=== PATIENT | male | born 1950 | race African-American/Black ===

== ENCOUNTER → 2020-08-21 11:00 | Outpatient (BNVA) | payer MEDICARE, SELFPAY | PROVIDERS: Visit Provider Urology | DX: Z76.89 Persons encountering health services in other specified circumstances (principal) | CPT/HCPCS: Q3014 ==

== ENCOUNTER 2020-09-28 12:09 | Outpatient (REF) | payer MEDICARE, SELFPAY ==
--- NOTE | 2020-09-28 12:14 | US_ITS ---
EXAMINATION: US PELVIS LIMITED (BLADDER) CLINICAL INFORMATION: Poor urinary stream. Patient reports urgency and frequency. COMPARISON: None TECHNIQUE: Real-time imaging of the bladder. FINDINGS: BLADDER: There is mild diffuse bladder wall thickening. No stone or mass is seen. Bilateral ureteral jets are demonstrated. Prevoid bladder volume is 179.0 mL. Postvoid bladder volume is 48.2 mL. PROSTATE: The prostate gland is enlarged and protrudes into the base of the bladder 4.0 x 4.1 x 4.8 cm (SAG x AP x TRV), volume 40.5 mL. US/US bladder IMPRESSION: Mild diffuse bladder wall thickening. 48 mL postvoid bladder residual. Enlarged prostate gland that protrudes into the base of the bladder.
== END 2020-09-28 12:10 | disposition home or self-care (01) ==
LOC: HO.US 12:09
PROVIDERS: PCP Internal Medicine; Visit Provider Urology
DX: R39.12 Poor urinary stream (principal); N40.1 Benign prostatic hyperplasia with lower urinary tract symptoms; N13.8 Other obstructive and reflux uropathy
CPT/HCPCS: 76857

== ENCOUNTER → 2021-01-08 10:10 | Outpatient (BNVA) | payer MEDICARE, SELFPAY | PROVIDERS: PCP Internal Medicine; Visit Provider Urology | DX: N40.1 Benign prostatic hyperplasia with lower urinary tract symptoms (principal); N13.8 Other obstructive and reflux uropathy | CPT/HCPCS: 51798; 81002; 99212 ==

== ENCOUNTER 2021-12-27 12:40 | Outpatient (REF) | payer OTHER, SELFPAY ==
[2021-12-27 14:48] LABS: Prostate Specific Antigen 1.82 ng/mL (<0.05-4.0)
== END 2021-12-27 12:41 | disposition home or self-care (01) ==
LOC: HO.10HDL 12:40
PROVIDERS: Visit Provider Urology
DX: Z12.5 Encounter for screening for malignant neoplasm of prostate (principal); N40.1 Benign prostatic hyperplasia with lower urinary tract symptoms; N13.8 Other obstructive and reflux uropathy
CPT/HCPCS: 36415; 84153

== ENCOUNTER → 2022-01-04 11:34 | Outpatient (BNVA) | payer OTHER, SELFPAY | PROVIDERS: PCP Internal Medicine; Visit Provider Urology | DX: Z13.89 Encounter for screening for other disorder (principal) | CPT/HCPCS: Q3014 ==

== ENCOUNTER → 2022-04-27 13:13 | Outpatient (BNVA) | payer OTHER, SELFPAY | PROVIDERS: PCP Internal Medicine; Visit Provider Urology | DX: N40.1 Benign prostatic hyperplasia with lower urinary tract symptoms (principal); N13.8 Other obstructive and reflux uropathy; N32.81 Overactive bladder | CPT/HCPCS: Q3014 ==

== ENCOUNTER 2023-08-16 13:52 | Outpatient (AMB) | payer OTHER, SELFPAY ==
--- NOTE | 2023-08-16 13:57 | A.OFFVIS_ITS ---
Intake Intake Visit Reasons: BPH- follow up Intake Note: Patient presents today for a follow-up on: Meds- None Allergies to Antibiotic- No Known Allergies Blood Thinner- None PVR- 130 mL County Assessor Required: No Accompanied by: Self / Same As Patient Allergies Latex Gloves Allergy (Unknown, Uncoded 08/16/23 13:58) Unknown Medication List - Last Reconciled 08/16/23 by Breezy Tolentnio MD amlodipine 5 mg PO DAILY levothyroxine 137 mcg PO DAILY HPI HPI Comments History of Present Illness Details Rony is a pleasant [place] male. He is seen for the following urologic conditions - lower urinary tract symptoms PVR today 130 cc Had stopped other medications Discussion regarding trial of tadalafil for bladder edge and emptying Has discomfort around bladder Renal bladder ultrasound with medication Trauma Lower Urinary Tract Symptoms: Current visit is for further evaluation of, lower urinary tract symptoms, predominate obstructive symptoms Currently stable with dutasteride Dutasteride 1 day a week. Current treatment includes 07/05 , 5-AR. Prior treatments include medication , flomax/tamsulosin - failed, hytrin/terazosin dizziness - had stopped finasteride since had started same time as flomax - oxybutynin with dry mouth, prior darifenacin 07/05 dutasteride. Prostate Symptom Score Moderate (9-19), Bother 3 07/05 , , Moderate (9-19), Bother 2. Symptoms include urgency, nocturia (>2), and are progressing 07/05 , nocturia (>2), and are stable 01/04 , incomplete emptying, weak stream,, and are stable. Results from testing include cystoscopy Normal bladder with occasional red area - 07/03 - chronic cystitis transrectal ultrasound Yes Date 06/20/2016 prostate size 65 Prior Prostate Score mild. PSA 06/05 1.2, 11/07 2.2, 02/04 T 500, FSH 19 - 12/06 PSA 1.6, 12/07 1.8 Prostate volume 50+gm. Testing at next visit will include bladder scan. Treatment plan 6 month follow-up PVR PFSH Medical History BPH (benign prostatic hyperplasia) HTN (hypertension) Incomplete emptying of bladder Nocturia Orchalgia Overactive bladder Surgical History History of surgery Review of Systems Const Denies chills and Denies fever(s) Card Reports no additional complaints and Denies syncope Resp Denies cough GI Denies abdominal pain and Denies heartburn Reports as per HPI and Denies change in libido Neuro Denies syncope Psych Denies change in libido Endo Denies change in libido Physical Exam Const General: cooperative, healthy appearing, comfortable and no acute distress Orientation/consciousness: patient oriented x3 HEENT Face and sinus: Yes normal facial exam Mouth: moist mucous membranes Neck Neck: Yes normal visual inspection, Yes full ROM and Yes trachea midline Chest Chest palpation & inspection: normal inspection of the chest Resp Effort & Inspection: normal respiratory effort, able to speak in complete sentences and no respiratory distress GI Inspection: Yes normal to inspection Back/Spine/Pelvis Cervical Spine: normal cervical lordosis Thoracic/Lumbar Spine: thoracic and lumbar spine normal to inspection Skin General skin exam: no rashes or lesions noted Neuro General: patient oriented x3, gait normal, tone normal and moves all extremities Extrem General: Yes normal to inspection and Yes capillary refill normal Office Procedures Post Void Residual Post Residual Void Post Void Residual (PVR): 130 [id number]-[id number] Void Residual by ultrasound Results AMB Urinalysis, Automated UA Leukoctes 0 Tin/uL Last Edit by CATHY Calvin on 08/16/23 14:23 UA Nitrite Negative Last Edit by CATHY Calvin on 08/16/23 14:23 UA Urobilinogen 0.2 mg/dL Last Edit by CATHY Calvin on 08/16/23 14:2 3 UA Protein 0 mg/dL Last Edit by CATHY Calvin on 08/16/23 14:23 UA pH 6.0 Last Edit by CATHY Calvin on 08/16/23 14:23 UA Blood 25 Elmer/uL Last Edit by CATHY Calvin on 08/16/23 14:23 UA Specific Jackson 1.025 Last Edit by CATHY Calvin on 08/16/23 14: 23 UA Ketone Negative Last Edit by CATHY Calvin on 08/16/23 14:23 UA Bilirubin 0 mg/dL Last Edit by CATHY Calvin on 08/16/23 14:23 UA Glucose 0 mg/dL Last Edit by CATHY Calvin on 08/16/23 14:23 Assessment & Plan Assessment & Plan (1) Overactive bladder: Code(s): N32.81 - Overactive bladder (2) BPH w urinary obs/LUTS: Code(s): N40.1 - Benign prostatic hyperplasia with lower urinary tract symptoms; N13.8 - Other obstructive and reflux uropathy Plan Two month follow-up tele Orders: Orders AMB Post Void Residual by ultrasound Today N39.8 - Other specified disorders of urinary system AMB Urinalysis Automated Today Z13.9 - Encounter for screening, unspecified US retroperitoneal limited Today N32.81 - Overactive bladder, R31.29 - Other microscopic hematuria Medications: New tadalafil 5 mg PO DAILY 90 days 90 tabs 0RF overactive bladder N32.81 - Overact awais bladder Patient Instructions: Imaging studies, laboratory and physical exam results were discussed and reviewed in detail. No major barriers to patient understanding were identified. An opportunity to ask questions regarding the treatment plan was provided. All questions were answered. The patient expressed understanding and agreement with the above treatment plan. The patient is aware they should contact our office by phone for worsening of their current condition or the appearance of new urologic symptoms. Compliance is encouraged with any medications and followup testing that is ordered. It is a privilege to participate in the urologic care of your patient. If you have any questions or concerns regarding treatment for the above conditions, or other urologic issues, please do not hesitate to contact me. The office telephone contact is [phone]. This note is constructed using voice recognition software. While every effort has been made to ensure accuracy field appraiser errors may have been included. Yours sincerely, Dr Breezy Tolentino MD, [facility] - Urology Providers of Expert, Compassionate Care for the Genitourinary System Coding Level of Care Code Est Pt Level 4 (62923) Diagnoses Overactive bladder N32.81 BPH w urinary obs/LUTS N40.1; N13.8 CPT Codes Post Residual Void - PVR CPT Code: 23967-Vdfk Void Residual by ultrasound ([id number])
== END 2023-08-16 14:25 | disposition home or self-care (01) ==
PROVIDERS: PCP Internal Medicine; Visit Provider Urology
DX: N32.81 Overactive bladder (principal); N40.1 Benign prostatic hyperplasia with lower urinary tract symptoms; N13.8 Other obstructive and reflux uropathy; Z13.9 Encounter for screening, unspecified
CPT/HCPCS: 99214

== ENCOUNTER → 2023-08-16 13:52 | Outpatient (BNVA) | payer OTHER, SELFPAY | PROVIDERS: PCP Internal Medicine; Visit Provider Urology | DX: N40.1 Benign prostatic hyperplasia with lower urinary tract symptoms (principal); N13.8 Other obstructive and reflux uropathy; N32.81 Overactive bladder | CPT/HCPCS: 51798; 81003; 99212 ==

== ENCOUNTER 2023-10-16 12:52 | Outpatient (REF) | payer MEDICARE, SELFPAY ==
--- NOTE | ~2023-10-16 | US_ITS ---
EXAMINATION: US RETROPERITONEAL LIMITED (RENAL ONLY) CLINICAL INFORMATION: Other microscopic hematuria. COMPARISON: Ultrasound kidneys and bladder 09/28/2020. TECHNIQUE: Real-time imaging of the kidneys. Limited visualization due to bowel gas. FINDINGS: RIGHT KIDNEY: 10.7 x 5.4 x 6.0 cm (SAG x AP x TRV). No hydronephrosis. No renal calculi. Renal cortical thickness is normal. Limited visualization. Upper pole 2.2 cm and 2.0 cm cysts with benign features. There is no indication for follow-up imaging. LEFT KIDNEY: 10.6 x 6.1 x 6.0 cm (SAG x AP x TRV). No hydronephrosis. No renal calculi. Renal cortical thickness is normal. Limited visualization. BLADDER: Bladder is decompressed. The prostate volume is 97 mL. US/US renal BI IMPRESSION: 1. No hydronephrosis. No renal calculi. 2. Right renal cysts with benign features. There is no indication for follow-up imaging.
== END 2023-10-16 12:53 | disposition home or self-care (01) ==
LOC: HO.US 12:52
PROVIDERS: PCP Internal Medicine; Visit Provider Urology
DX: R31.29 Other microscopic hematuria (principal); N32.81 Overactive bladder
CPT/HCPCS: 76775

== ENCOUNTER 2023-10-18 13:53 | Outpatient (AMB) | payer MEDICARE, SELFPAY ==
--- NOTE | 2023-10-18 13:54 | MHC.OFFVIS ---
Intake Intake Visit Reasons: 2m/US(10/16) Intake Note: Patient is Present for Telephone Follow Up Ultrasound Urology Med: Tadalafil Antibiotic Allergy: None Blood Thinner: None Allergies Latex Gloves Allergy (Unknown, Uncoded 08/16/23 13:58) Unknown HPI HPI Comments History of Present Illness Details Rony is a pleasant [place] male. He is seen for the following urologic conditions - lower urinary tract symptoms Telemedicine Evaluation 15 min Consultation [facility] Has responded to tadalafil is bladder stabilize the Would like to continue Prescription provided Lower Urinary Tract Symptoms: Current visit is for further evaluation of, lower urinary tract symptoms, predominate obstructive symptoms Current treatment includes 07/05 , 5-AR. Prior treatments include medication , flomax/tamsulosin - failed, hytrin/terazosin dizziness - had stopped finasteride since had started same time as flomax - oxybutynin with dry mouth, prior darifenacin 07/05 dutasteride. Prostate Symptom Score Moderate (9-19), Bother 3 07/05 , , Moderate (9-19), Bother 2. Symptoms include urgency, nocturia (>2), and are progressing 07/05 , nocturia (>2), and are stable 01/04 , incomplete emptying, weak stream,, and are stable. Results from testing include cystoscopy Normal bladder with occasional red area - 07/03 - chronic cystitis transrectal ultrasound Yes Date 06/20/2016 prostate size 65 Prior Prostate Score mild. PSA 06/05 1.2, 11/07 2.2, 02/04 T 500, FSH 19 - 12/06 PSA 1.6, 12/07 1.8 Prostate volume 50+gm. Testing at next visit will include bladder scan. Treatment plan 6 month follow-up PVR COUNT INCLUDES [facility] Medical History BPH (benign prostatic hyperplasia) HTN (hypertension) Incomplete emptying of bladder Nocturia Orchalgia Overactive bladder Surgical History History of surgery Assessment & Plan Assessment & Plan (1) Overactive bladder: Code(s): N32.81 - Overactive bladder (2) BPH w urinary obs/LUTS: Code(s): N40.1 - Benign prostatic hyperplasia with lower urinary tract symptoms; N13.8 - Other obstructive and reflux uropathy Plan Six-month follow-up Medications: Refilled tadalafil 5 mg PO DAILY 90 days 90 tabs 1RF overactive bladder N32.81 - Overactive bladder Patient Instructions: Imaging studies, laboratory and physical exam results were discussed and reviewed in detail. No major barriers to patient understanding were identified. An opportunity to ask questions regarding the treatment plan was provided. All questions were answered. The patient expressed understanding and agreement with the above treatment plan. The patient is aware they should contact our office by phone for worsening of their current condition or the appearance of new urologic symptoms. Compliance is encouraged with any medications and followup testing that is ordered. It is a privilege to participate in the urologic care of your patient. If you have any questions or concerns regarding treatment for the above conditions, or other urologic issues, please do not hesitate to contact me. The office telephone contact is [phone]. This note is constructed using voice recognition software. While every effort has been made to ensure accuracy mobile equipment operator errors may have been included. Yours sincerely, Dr Breezy Tolentino MD, [facility] - Urology Providers of Expert, Compassionate Care for the Genitourinary System Telehealth Telehealth Location of provider rendering services: practice address Location of patient: address on file Patient Identification confirmed using: Name, : Yes Telehealth method: video Patient verbally consented to treatment: Yes Patient verbally consented to billing insurance company: Yes Patient informed of any privacy concerns related to visit: Yes Coding Level of Care Code Tele Est Pt Level 3 (21032) Diagnoses Overactive bladder N32.81 BPH w urinary obs/LUTS N40.1; N13.8
== END 2023-10-18 14:30 | disposition home or self-care (01) ==
LOC: HO.HUSH 13:53
PROVIDERS: PCP Internal Medicine; Visit Provider Urology
DX: N32.81 Overactive bladder (principal); N40.1 Benign prostatic hyperplasia with lower urinary tract symptoms; N13.8 Other obstructive and reflux uropathy
CPT/HCPCS: 99213

== ENCOUNTER → 2023-10-18 13:53 | Outpatient (BNVA) | payer MEDICARE, SELFPAY | PROVIDERS: PCP Internal Medicine; Visit Provider Urology ==

== ENCOUNTER 2024-04-16 14:17 | Outpatient (AMB) | payer MEDICARE, SELFPAY ==
--- NOTE | 2024-04-16 14:20 | A.OFFVIS_ITS ---
Intake Visit Reasons: 6M Follow Up-PVR Intake Note: Patient presents today for a 6M follow-up/PVR Meds- None Allergies to Antibiotic- No Known Allergies Blood Thinner- None PVR- 130 mL todays PVR:0ML'S Motor Inspection Mechanic Required: No Accompanied by: Self / Same As Patient Allergies Latex Gloves Allergy (Unknown, Uncoded 04/16/24 14:22) Unknown Medication List - Last Reconciled 04/16/24 by Breezy Tolentino MD amlodipine 5 mg PO DAILY levothyroxine 137 mcg PO DAILY tadalafil 5 mg PO DAILY 90 days HPI Comments Details: Rony is a pleasant [place] male. He is seen for the following urologic conditions - lower urinary tract symptoms - bladder instability PVR 0 cc Has responded to tadalafil - bladder stabilization Has been having pain on left side. On exam no musculoskeletal triggers. Discussed getting imaging through primary care Refilled medications Lower Urinary Tract Symptoms: Current visit is for further evaluation of, lower urinary tract symptoms, predominate obstructive symptoms Current treatment includes 07/05 , 5-AR. Prior treatments include medication , flomax/tamsulosin - failed, hytrin/terazosin dizziness - had stopped finasteride since had started same time as flomax - oxybutynin with dry mouth, prior darifenacin 07/05 dutasteride. Prostate Symptom Score Moderate (9-19), Bother 3 07/05 , , Moderate (9-19), Bother 2. Symptoms include urgency, nocturia (>2), and are progressing 07/05 , nocturia (>2), and are stable 01/04 , incomplete emptying, weak stream,, and are stable. Results from testing include cystoscopy Normal bladder with occasional red area - 07/03 - chronic cystitis transrectal ultrasound Yes Date 06/20/2016 prostate size 65 Prior Prostate Score mild. PSA 06/05 1.2, 11/07 2.2, 02/04 T 500, FSH 19 - 12/06 PSA 1.6, 12/07 1.8 Prostate volume 50+gm. Testing at next visit will include bladder scan. Treatment plan 6 month follow-up PVR [facility] Medical History BPH (benign prostatic hyperplasia) HTN (hypertension) Incomplete emptying of bladder Nocturia Orchalgia Overactive bladder Surgical History History of surgery Review of Systems Const Denies chills and Denies fever(s) Card Reports no additional complaints and Denies syncope Resp Denies cough GI Denies abdominal pain and Denies heartburn Reports as per HPI and Denies change in libido Neuro Denies syncope Psych Denies change in libido Endo Denies change in libido Physical Exam Const General: cooperative, healthy appearing, comfortable and no acute distress Orientation/consciousness: patient oriented x3 HEENT Face and sinus: Yes normal facial exam Mouth: moist mucous membranes Neck Neck: Yes normal visual inspection, Yes full ROM and Yes trachea midline Chest Chest palpation & inspection: normal inspection of the chest Resp Effort & Inspection: normal respiratory effort, able to speak in complete sentences and no respiratory distress GI Inspection: Yes normal to inspection Back/Spine/Pelvis Cervical Spine: normal cervical lordosis Thoracic/Lumbar Spine: thoracic and lumbar spine normal to inspection Skin General skin exam: no rashes or lesions noted Neuro General: patient oriented x3, gait normal, tone normal and moves all extremities Extrem General: Yes normal to inspection and Yes capillary refill normal Office Procedures Post Void Residual Post Residual Void Post Void Residual (PVR): 0 [id number]-[id number] Void Residual by ultrasound Results AMB Urinalysis, Automated UA Leukoctes 0 Tin/uL Last Edit by ISAC Berg on 04/16/24 14:33 UA Nitrite Negative Last Edit by ISAC Berg on 04/16/24 14:33 UA Urobilinogen 0.2 mg/dL Last Edit by ISAC Berg on 04/16/24 14:3 3 UA Protein 0 mg/dL Last Edit by ISAC Berg on 04/16/24 14:33 UA pH 6.0 Last Edit by ISAC Berg on 04/16/24 14:33 UA Blood 25 Elmer/uL Last Edit by ISAC Berg on 04/16/24 14:33 UA Specific Buck[place] 1.010 Last Edit by ISAC Berg on 04/16/24 14: 33 UA Ketone Negative Last Edit by ISAC Berg on 04/16/24 14:33 UA Bilirubin 0 mg/dL Last Edit by ISAC Berg on 04/16/24 14:33 UA Glucose 0 mg/dL Last Edit by ISAC Berg on 04/16/24 14:33 Results Reviewed Results Reviewed: Laboratory Last Values Urine pH (Auto) 6.0 04/16/24 14:32 Specific Buckner (Auto) 1.010 04/16/24 14:32 Urine Protein (Auto) 0 mg/dL 04/16/24 14:32 Glucose (UA)(Auto) 0 mg/dL 04/16/24 14:32 Urine Ketones (Auto) Negative 04/16/24 14:32 Urine Blood (Auto) 25 Elmer/uL 04/16/24 14:32 Urine Nitrite (Auto) Negative 04/16/24 14:32 Urine Bilirubin (Auto) 0 mg/dL 04/16/24 14:32 Urine Urobilinogen (Auto) 0.2 mg/dL 04/16/24 14:32 Leukocyte Esterase (Auto) 0 Tin/uL 04/16/24 14:32 Assessment & Plan Assessment & Plan (1) Overactive bladder: Code(s): N32.81 - Overactive bladder Category: Medical (2) BPH w urinary obs/LUTS: Code(s): N40.1 - Benign prostatic hyperplasia with lower urinary tract symptoms; N13.8 - Other obstructive and reflux uropathy Category: Medical Plan Six month follow-up Orders: Orders AMB Urinalysis Automated Today Z13.9 - Encounter for screening, unspecified Medications: New tadalafil 5 mg PO DAILY 90 days 90 tabs 0RF N32.81 - Overactive bladder Refilled tadalafil 5 mg PO DAILY 90 days 90 tabs 1RF overactive bladder N32.81 - Overactive bladder Patient Instructions: Imaging studies, laboratory and physical exam results were discussed and reviewed in detail. No major barriers to patient understanding were identified. An opportunity to ask questions regarding the treatment plan was provided. All questions were answered. The patient expressed understanding and agreement with the above treatment plan. The patient is aware they should contact our office by phone for worsening of their current condition or the appearance of new urologic symptoms. Compliance is encouraged with any medications and followup testing that is ordered. It is a privilege to participate in the urologic care of your patient. If you have any questions or concerns regarding treatment for the above conditions, or other urologic issues, please do not hesitate to contact me. The office telephone contact is [phone]. This note is constructed using voice recognition software. While every effort has been made to ensure accuracy applications specialist errors may have been included. Yours sincerely, Dr Breezy Tolentino MD, [facility] - Urology Providers of Expert, Compassionate Care for the Genitourinary System Coding Level of Care Code Est Pt Level 3 (59843) Diagnoses Overactive bladder N32.81 BPH w urinary obs/LUTS N40.1; N13.8 CPT Codes Post Residual Void - PVR CPT Code: 97975-Betr Void Residual by ultrasound ([id number])
== END 2024-04-16 14:44 | disposition home or self-care (01) ==
PROVIDERS: PCP Internal Medicine; Visit Provider Urology
DX: N32.81 Overactive bladder (principal); N40.1 Benign prostatic hyperplasia with lower urinary tract symptoms; N13.8 Other obstructive and reflux uropathy; Z13.9 Encounter for screening, unspecified
CPT/HCPCS: 99213

== ENCOUNTER → 2024-04-16 14:17 | Outpatient (BNVA) | payer MEDICARE, SELFPAY | PROVIDERS: PCP Internal Medicine; Visit Provider Urology | DX: N40.1 Benign prostatic hyperplasia with lower urinary tract symptoms (principal); N13.8 Other obstructive and reflux uropathy; N32.81 Overactive bladder | CPT/HCPCS: 51798; 81003; 99212 ==

== ENCOUNTER 2024-10-15 14:26 | Outpatient (AMB) | payer MEDICARE, SELFPAY ==
--- NOTE | 2024-10-15 14:28 | A.OFFVIS_ITS ---
Intake Visit Reasons: 6m follow up/PVR Intake Note: Patient is present for 6M PVR Urology Medication:TADALAFIL Antibiotic Allergy:NONE Blood Thinner:NONE Last PVR:130ML'S Todays PVR:0ML'S Broadcast Producer Required: No Allergies Latex Gloves Allergy (Unknown, Uncoded 10/15/24 14:30) Unknown HPI Comments Details: Rony is a pleasant [place] male. He is seen for the following urologic conditions - lower urinary tract symptoms - bladder instability PVR today 130. Last PVR 0. Has responded to tadalafil - bladder stabilization UA shows 2+ blood known prior chronic cystitis Has been using Metamucil to help with bowels This helped resolve his back pain Talked about having lunch at [employer] Lower Urinary Tract Symptoms: Current visit is for further evaluation of, lower urinary tract symptoms, predominate obstructive symptoms Current treatment includes 07/05 , 5-AR. Prior treatments include medication , flomax/tamsulosin - failed, hytrin/terazosin dizziness - had stopped finasteride since had started same time as flomax - oxybutynin with dry mouth, prior darifenacin 07/05 dutasteride. Prostate Symptom Score Moderate (9-19), Bother 3 07/05 , , Moderate (9-19), Bother 2. Symptoms include urgency, nocturia (>2), and are progressing 07/05 , nocturia (>2), and are stable 01/04 , incomplete emptying, weak stream,, and are stable. Results from testing include cystoscopy Normal bladder with occasional red area - 07/03 - chronic cystitis transrectal ultrasound Yes Date 06/20/2016 prostate size 65 Prior Prostate Score mild. PSA 06/05 1.2, 11/07 2.2, 02/04 T 500, FSH 19 - 12/06 PSA 1.6, 12/07 1.8 Prostate volume 50+gm. Testing at next visit will include bladder scan. [facility] Medical History BPH (benign prostatic hyperplasia) HTN (hypertension) Incomplete emptying of bladder Nocturia Orchalgia Overactive bladder Surgical History History of surgery Review of Systems Const Denies chills and Denies fever(s) Card Reports no additional complaints and Denies syncope Resp Denies cough GI Denies abdominal pain and Denies heartburn Reports as per HPI and Denies change in libido Neuro Denies syncope Psych Denies change in libido Endo Denies change in libido Physical Exam Const General: cooperative, healthy appearing, comfortable and no acute distress Orientation/consciousness: patient oriented x3 HEENT Face and sinus: Yes normal facial exam Mouth: moist mucous membranes Neck Neck: Yes normal visual inspection, Yes full ROM and Yes trachea midline Chest Chest palpation & inspection: normal inspection of the chest Resp Effort & Inspection: normal respiratory effort, able to speak in complete sentences and no respiratory distress GI Inspection: Yes normal to inspection Back/Spine/Pelvis Cervical Spine: normal cervical lordosis Thoracic/Lumbar Spine: thoracic and lumbar spine normal to inspection Skin General skin exam: no rashes or lesions noted Neuro General: patient oriented x3, gait normal, tone normal and moves all extremities Extrem General: Yes normal to inspection and Yes capillary refill normal Office Procedures Post Void Residual Post Residual Void Post Void Residual (PVR): 0 66255-Ualb Void Residual by ultrasound Results AMB Urinalysis, Automated UA Leukoctes 0 Tin/uL Last Edit by ISAC Berg on 10/15/24 15:02 UA Nitrite Negative Last Edit by ISAC Berg on 10/15/24 15:02 UA Urobilinogen 0.2 mg/dL Last Edit by ISAC Berg on 10/15/24 15:0 2 UA Protein 30 mg/dL Last Edit by ISAC Berg on 10/15/24 15:02 UA pH 6.0 Last Edit by ISAC Berg on 10/15/24 15:02 UA Blood 80 Elmer/uL Last Edit by ISAC Berg on 10/15/24 15:02 UA Specific Belcourt 1.025 Last Edit by ISAC Berg on 10/15/24 15: 02 UA Ketone Positive Last Edit by ISAC Berg on 10/15/24 15:02 UA Bilirubin 0 mg/dL Last Edit by ISAC Berg on 10/15/24 15:02 UA Glucose 0 mg/dL Last Edit by ISAC Berg on 10/15/24 15:02 Results Reviewed Results Reviewed: Laboratory Last Values Urine pH (Auto) 6.0 10/15/24 15:02 Specific [place]court (Auto) 1.025 10/15/24 15:02 Urine Protein (Auto) 30 mg/dL 10/15/24 15:02 Glucose (UA)(Auto) 0 mg/dL 10/15/24 15:02 Urine Ketones (Auto) Positive 10/15/24 15:02 Urine Blood (Auto) 80 Elmer/uL 10/15/24 15:02 Urine Nitrite (Auto) Negative 10/15/24 15:02 Urine Bilirubin (Auto) 0 mg/dL 10/15/24 15:02 Urine Urobilinogen (Auto) 0.2 mg/dL 10/15/24 15:02 Leukocyte Esterase (Auto) 0 Tin/uL 10/15/24 15:02 Assessment & Plan Assessment & Plan (1) Overactive bladder: Code(s): N32.81 - Overactive bladder Category: Medical (2) Nocturia: Code(s): R35.1 - Nocturia Category: Medical (3) BPH w urinary obs/LUTS: Code(s): N40.1 - Benign prostatic hyperplasia with lower urinary tract symptoms; N13.8 - Other obstructive and reflux uropathy Category: Medical Plan Six-month follow-up office Refill provided Orders: Orders AMB Urinalysis Automated Today Z13.9 - Encounter for screening, unspecified Medications: Refilled tadalafil 5 mg PO DAILY 90 days 90 tabs 1RF overactive bladder N32.81 - Overactive bladder Patient Instructions: Imaging studies, laboratory and physical exam results were discussed and reviewed in detail. No major barriers to patient understanding were identified. An opportunity to ask questions regarding the treatment plan was provided. All questions were answered. The patient expressed understanding and agreement with the above treatment plan. The patient is aware they should contact our office by phone for worsening of their current condition or the appearance of new urologic symptoms. Compliance is encouraged with any medications and followup testing that is ordered. It is a privilege to participate in the urologic care of your patient. If you have any questions or concerns regarding treatment for the above conditions, or other urologic issues, please do not hesitate to contact me. The office telephone contact is [phone]. This note is constructed using voice recognition software. While every effort has been made to ensure accuracy foster care social worker errors may have been included. Yours sincerely, Dr Breezy Tolentino MD, DON[facility] - Urology Providers of Expert, Compassionate Care for the Genitourinary System Coding Level of Care Code Est Pt Level 3 (65446) Diagnoses Overactive bladder N32.81 Nocturia R35.1 BPH w urinary obs/LUTS N40.1; N13.8 CPT Codes Post Residual Void - PVR CPT Code: 29367-Vtlj Void Residual by ultrasound ([id number])
--- OUTSIDE RECORDS SUMMARY | 2024-10-15 15:19 | XMS_ITS | Continuity of Care Document ---
Author Organization [facility] Address [address] [place] [address]- Care Team Providers Care Computer Applications Developer Name Role Phone Anuradha RAMIREZ, Earle Holbrook Primary Care Physician Encounter [facility] Date(s): 08/19/24 - 09/18/24 [facility] [address] [place] [id number] Encounter Type: Triage Allergies, Adverse Reactions, Alerts Substance Criticality Severity Reaction Reaction Severity Status Chocolate HEADACHE Active Coconut Oil HEADACHE Active Latex rash on hands Active Strawberries HEADACHE Active Other Food Allergy ANY FOOD OR LIQUID WITH PURLE COLOR-BEETS,WINE ssugar Active Immunizations Given and Recorded Vaccine Date Status Refusal Reason zoster vaccine, inactivated 11/17/23 Recorded pneumococcal 20-valent conjugate vaccine 11/17/23 Recorded influenza virus vaccine, inactivated 08/04/22 Give n influenza virus vaccine, inactivated 08/13/21 Velasquez rded influenza virus vaccine, inactivated 1 06/09/20 Gi shalonda influenza virus vaccine, inactivated 2 05/27/18 Re corded influenza virus vaccine, inactivated 04/24/17 Velasquez rded influenza virus vaccine, inactivated 3 04/29/16 Re corded influenza virus vaccine, inactivated 4 05/04/15 Re corded influenza virus vaccine, inactivated 06/30/14 Velasquez rded influenza virus vaccine, inactivated 5 06/14/13 Gi shalonda influenza virus vaccine, inactivated 6 03/19/12 Gi shalonda influenza virus vaccine, inactivated 7 06/28/11 Gi shalonda influenza virus vaccine, inactivated 8 02/21/08 Gi shalonda SARS-CoV-2 (COVID-19) mRNA BNT-162b2 vac 08/13/21 Recorded SARS-CoV-2 (COVID-19) mRNA BNT-162b2 vac 01/23/21 Recorded SARS-CoV-2 (COVID-19) mRNA BNT-162b2 vac 01/02/21 Recorded Influenza Virus Vaccine (oldterm) 07/07/19 Recorde d tetanus-diphtheria toxoids (Td) 02/18/19 Given pneumococcal 23-valent vaccine 9 02/10/16 Recorded pneumococcal 23-valent vaccine 12/10/12 Given pneumococcal 13-valent vaccine 10 12/31/14 Recorde d Zoster Vaccine Live 11 04/13/12 Given FluLaval (oldterm) 05/28/10 Given Adacel (Tdap) (oldterm) 12 02/20/09 Given 1Result Comment: [id number] 2Result Comment: [05/28/2018] hd 3Result Comment: [05/02/2016] [facility] 4Result Comment: [05/05/2015] [facility] 6Admin Note: [facility] 7Admin Note: MANUFACTURE BIOMEDICAL INFO SHEET GIVEN GIVEN W/O INCIDENT 8Admin Note: refused 9Result Comment: [02/11/2016] [facility] 10Result Comment: [01/02/2015] DONE AT [facility] FORM RECEIVED 11Admin Note: [facility] 12Admin Note: GIVEN WITHOUT INCIDENT Medications amLODIPine 5 mg oral tablet 1 tablet, By Mouth, Daily, for 90 days, # 90 tablet, 3 Refills, Physician Stop 04/24/25 3:28:00 PM EDT, 04/29/24 3:28:00 PM EDT, [facility] #[id number], 184, cm, 04/29/24 14:30:00 EDT, Height, 88.7, kg, 04/29/24 14:30:00 EDT, Dry Weight Start Date: 04/29/24 Stop Date: 04/24/25 Status: Ordered Quantity: 90.0 Unit: tablet Repeat number: 4 Aspirin = 81 mg, By Mouth, Daily, 0 Refills, 02/21/08 3:39:44 PM EDT Start Date: 02/21/08 Status: Ordered Repeat number: 1 levothyroxine 0.137 mg oral tablet 1 tablet = 137 mcg, By Mouth, Daily, 1 tablet = 137 mcg, By Mouth, Daily. with plenty of water on an empty stomach, # 90 tablet, 3 Refills, Maintenance, 09/16/24 2:39:00 PM EST, Tablet, [facility] #[id number], 184, cm, 09/16/24 14:06:00 EST, Height, 88.7, kg, 04/29/24 14:30:00 EDT, Dry Weight Start Date: 09/16/24 Status: Ordered Quantity: 90.0 Unit: tablet Repeat number: 4 Indication: Malignant neoplasm of thyroid gland Readi-Cat 2 Smoothie Tol[place]ino 2% oral suspension See Instructions, drink one bottle 4 hours before and 1 bottle one hour before., # 2 each, 0 Refills, Maintenance, 05/06/24 5:40:00 PM EDT, [facility] #[id number], Partial fill upon patient request if the prescription is for a schedule II opioid drug., drink one bottle 4 hours before and 1 bottle one hour before., 184, cm, 04/29/24 14:30:00 EDT, Height, 88.7, kg, 04/29/24 14:30:00 EDT, Dry Mendoza ght Start Date: 05/06/24 Status: Ordered Quantity: 2.0 Unit: each Repeat number: 1 tadalafil 5 mg oral tablet By Mouth, Daily, TAKE ONE TABLET BY MOUTH EVERY DAY DIRECTED Start Date: 04/29/24 Status: Ordered Repeat number: 1 Problem List Condition Confirmation Course Effective Dates Status Health St atus Informant Gastritis and duodenitis Confirmed 11/01/20 Active Glaucoma Confirmed Active Personal history of colonic polyps Confirmed 11/01/20 Active Hypertension Confirmed 04/23/10 Active NOCTURIA Confirmed 02/21/08 Active 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 Confirmed 11/07/17 Active Right thyroid nodule s/p Right thyroid lobectomy Confirmed 08/27/17 Active Tubular adenoma of colon 1 Confirmed 05/07/14 Active 1needs repeat colonoscopy in 2019 Social History Social History Type Response Smoking Status Never smoker; Tobacc o user in household: No entered on: 12/20/13 Sex Sex Representation Male (finding) Patient Care team information Care Team Personnel Name: Earle Ling MD Position: S Physician - Primary Care Member Role: PCP Address: [address] [place] [address] Adult & Pediatric Medicine [address] Telecom: Care Team Related Persons Name: SERA LYNN Name: KAMI LYNN Name: NOBLE LYNN Insurance Providers Guarantor name: CRISTOBAL LYNN Health Plan Information #: 1 Payer: NA Member Number: NA Policy Number: NA Group Number: NA
--- OUTSIDE RECORDS SUMMARY | 2024-10-15 15:19 | XMS_ITS ---
Author Organization [facility] Address [address] [place] [address] Phone Care Team Providers Care Chief Librarian Branch Name Role Phone Unavailable Unavailable Unavailable Allergies, Adverse Reactions, Alerts Adverse reactions excluded/not available Problems Problems excluded/not available
--- OUTSIDE RECORDS SUMMARY | 2024-10-15 15:19 | XMS_ITS | Continuity of Care Document ---
Author Organization [facility] Address [address] [place] [address]- Care Team Providers Care Electronic Device Monitor Name Role Phone Earle Ling MD Primary Care Physician Encounter [facility] Date(s): 09/24/24 - 10/01/24 [facility] [address] [place], [place] [address] Attending Physician: Earle Ling MD Encounter Type: Office Visit Allergies, Adverse Reactions, Alerts Substance Criticality Severity Reaction Reaction Severity Status Chocolate HEADACHE Active Coconut Oil HEADACHE Active Latex rash on hands Active Strawberries HEADACHE Active Other Food Allergy ANY FOOD OR LIQUID WITH PURLE COLOR-BEETS,WINE ssugar Active Immunizations Given and Recorded Vaccine Date Status Refusal Reason influenza virus vaccine, inactivated 09/24/24 Give n influenza virus vaccine, inactivated 08/04/22 Give n [...] virus vaccine, inactivated 8 02/21/08 Gi shalonda zoster vaccine, inactivated 08/18/24 Recorded zoster vaccine, inactivated 11/17/23 Recorded pneumococcal 20-valent conjugate vaccine 11/17/23 Recorded SARS-CoV-2 (COVID-19) mRNA BNT-162b2 vac 08/13/21 Recorded [...] (Tdap) (oldterm) 12 02/20/09 Given 1Result Comment: [id number] 2Result Comment: [05/28/2018] hd 3Result Comment: [05/02/2016] [facility] 4Result Comment: [05/05/2015] [facility] 5Admin Note: [facility] 6Admin Note: [facility] 7Admin Note: MANUFACTURE BIOMEDICAL INFO SHEET GIVEN GIVEN W/O INCIDENT 8Admin Note: refused 9Result Comment: [02/11/2016] [facility] 10Result Comment: [01/02/2015] [facility] 11Admin Note: [facility] 12Admin Note: GIVEN WITHOUT INCIDENT Medications amLODIPine 5 mg oral tablet 1 tablet, By Mouth, Daily, for 90 days, # 90 tablet, 3 Refills, Physician Stop 04/24/25 3:28:00 PM EDT, 04/29/24 3:28:00 PM EDT, [id number], 184, cm, 04/29/24 14:30:00 EDT, Height, 88.7, [...] Refills, Maintenance, 09/16/24 2:39:00 PM EST, Tablet, [facility] #[id number], 184, cm, 09/16/24 14:06:00 EST, Height, 88.7, kg, 04/29/24 14:30:00 EDT, Dry Weight Start Date: 09/16/24 Status: Ordered Quantity: 90.0 Unit: tablet Repeat number: 4 Indication: Malignant neoplasm of thyroid gland PEG-3350 with Electrolytes [place] (Eqv-NuLYTELY) oral powder for reconstitution 240 mL, By Mouth, Every 10 minutes, Stay on clear liquid diet ALL DAY the day BEFORE the procedure.Drink half the dose the evening before, and the other half early in the morning on the day of the procedure., # 4,000 mL, 0 Refills, Maintenance, 09/25/24 3:40:00 PM EST, REC Powder, [facility] #[id number], Partial fill upon patient request if the prescription is for a schedule II opioid drug., 240 mL By Mouth Every 10 minutes,Instr:Stay on clear liquid diet ALL DAY the day BEFORE the procedure. Drink half the dose the evening before, and the other half early in the morning on the day of the procedure., 184, cm, 09/25/24 15:19:00 EST, Height, 57.9, kg, 09/24/24 15:17:00 EST, Dry Weight Start Date: 09/25/24 Status: Ordered Quantity: 4000.0 Unit: mL Repeat number: 1 Readi-Cat 2 Smoothie Tolentino 2% oral suspension See Instructions, drink one bottle 4 hours before and 1 bottle one hour before., # 2 each, 0 Refills, Maintenance, 05/06/24 5:40:00 PM EDT, [facility] #[id number], Partial fill upon patient request if the [...] 05/07/14 Active 1needs repeat colonoscopy in 2019 Vital Signs Most recent to oldest [Reference Range]: 1 Height 184 cm (09/24/24 3:17 PM) Weight 87.9 kg (09/24/24 3:17 PM) Oxygen Saturation [94-100 %] 97 % (09/24/24 3:17 PM) Pulse Rate [55-90 bpm] 55 bpm (09/24/24 3:17 PM) Body Mass Index [18.5-24.99 kg/m2] 25.96 kg/m2 *H* (09/24/24 3:17 PM) Blood Pressure [90-138/55-84 mm Hg] 130/ 70mm Hg (09/24/24 3:17 PM) Mode of Delivery (Oxygen) Room air (09/24/24 3:17 PM) Blood pressure sites Arm, left (09/24/24 3:17 PM) Dry Weight 57.9 kg (09/24/24 3:17 PM) Weight Obtained Via Standing scale (09/24/24 3:17 PM) Social History Social History Type Response Smoking Status Never smoker; Tobacc o user in household: No entered on: 12/20/13 Sex Sex Representation Male (finding) Note * Elba Kimberly: PERFORM Event Display: Patient Education/Instruction Authored Date: [id number] Ambulatory Adult Visit Summary [facility] [place] [address] Name: CRISTOBAL LYNN : 1950?? Visit: 09/24/2024 14:50?? Ambulatory Visit Instructions ?? Your Care Team Primary Care Provider Earle Ling MD? This Visit Provider Earle Ling MD Your Diagnosis Abdominal pain, lower Vitals Signs Pulse Rate: 55 bpm Height: 184 cm Systolic Blood Pressure: 130 mm Hg Weight: 87.9 kg Diastolic Blood Pressure: 70 mm Hg Body Mass Index:??25.96 kg/m2??High Oxygen Saturation: 97 % Body surface area: 2.12 Medications The list below reflects the information in our records and provided by you today along with any changes made during this visit. Please continue your medications until treatment is completed or stopped by your provider. If this is different from the information you have or there are other questions,please contact the prescribing provider. What How Much When Why Instructions Unchanged Amlodipine (amLODIPine 5 mg oral tablet) 1 tab(s) Oral Daily Duration: 90 Days Unchanged Aspirin 81 Milligram Oral Daily Unchanged Barium Sulfate (Readi-Cat 2 Smoothie Tolentino 2% oral suspension) See instructions drink ??one ??bottle ?? 4 ??hours ??before ??and ?? 1 ??bottle ??one ?? hour ??before. ?? 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 ?? with plenty of water on an empty stomach ?? Unchanged tadalafil (tadalafil 5 mg oral tablet) Oral Daily TAKE ONE TABLET BY MOUTH EVERY DAY DIRECTED ?? Medications and Immunizations Administered Immunizations Given During Visit Given Vaccine Date influenza virus vaccine, inactivated 09/24/2024 Medications Given During Visit Medication ?? Dose ?? Route ?? Last Dose Times ?? influenza virus vaccine, inactivated?0.50 mL?? Intramuscular?? 24-SEP-2024 15:19:00.00?? Allergies (NKA means No Known Allergies) Chocolate??(HEADACHE) Coconut Oil??(HEADACHE) Latex??(rash on hands) Other Food Allergy??(ANY FOOD OR LIQUID WITH PURLE COLOR-BEETS,WINE, ssugar) Strawberries??(HEADACHE) Common Emergency Awareness Tips IS IT A STROKE? Act FAST and Check for these signs: FACE Does the face look uneven? ARM Does one arm drift down? SPEECH Does their speech sound strange? TIME Call at any sign of stroke ?? Heart Attack Signs Chest discomfort: Most heart attacks involve discomfort in the center of the chest and lasts more than a few minutes, or goes away and comes back. It can feel like uncomfortable pressure, squeezing, fullness or pain. Discomfort in upper body: Symptoms can include pain or discomfort in one or both arms, back, neck, jaw or stomach. Shortness of breath: With or without discomfort. Other signs: Breaking out in a cold sweat, nausea, or lightheaded. Remember, MINUTES DO MATTER. If you experience any of these heart attack warning signs, call to get immediate medical attention! ?? Smoking can increase your chances of developing chronic health problems and can cause harmful effects to other family members in your house. If you smoke, you are strongly encouraged to quit. Please call [employer] at [phone] or 3-108-452[employer] (2675) or log in to [email or web address] for referrals to smoking cessation programs. ?? The National Suicide Prevention Hotline is available 10/04 if you or someone you know needs to find a reason to keep living. By calling 1-706-789-[employer]c (8863) you'll be connected to a skilled, trained counselor at a crisis center in your area. [facility] [employer] Portal You can view and manage your care through the patient portal or by using a health care ayan of your choosing. [employer] is a website that allows you to securely view your medical information including your hospital discharge summary, office visit summaries, medications and follow-up visits. You can also request appointments, renew medications, and request access to your medical information using a health care ayan of your choosing, or just ask a question. You can enroll at [email or web address] or register during your next office visit. [facility], in keeping with [facility] guidance, no longer requires face masks for staff, patientsor visitors in most situations. Similiar to time spent indoors at other locations, there is the chance that you were exposed to repiratory viruses during your time with us (such as flu or COVID-19). If you develop symptoms concerning for a viral respiratory infection, please seek testing (and treatment if indicated) from your medical provider or home test kit. ?? Disclaimer: The information provided is of a general nature and is intended to be used in conjunction with the recommendations and advice of your health care practitioner. Every effort has been made to ensure that the information provided is accurate and complete at the time it is provided to you however, as your needs change, or, as new information becomes available, different or additional instructions may be required. ?? If you have questions, please consult with your primary care provider or pharmacist, as appropriate. This information is not intended to serve as substitution for assessment and evaluation by a qualified health care provider. If you do not have a primary care provider, you may find a [facility] provider by calling [facility] [employer] [facility] at [phone]. Patient Care team information Care Team Personnel Name: Earle Ling MD Position: [facility] Physician - Primary Care Member Role: PCP Address: [address] [place] [address] Adult & Pediatric Medicine [place] [id number] Telecom: Care Team Related Persons Name: SERA LYNN Name: KAMI LYNN Name: NOBLE LYNN Insurance Providers Guarantor name: CRISTOBAL LEAH Health Plan Information #: 1 Payer: NA Member Number: [id number] Policy Number: NA Group Number: [id number] Health Plan Information #: 2 Payer: NA Member Number: [id number] Policy Number: NA Group Number: NA
== END 2024-10-15 15:13 | disposition home or self-care (01) ==
PROVIDERS: PCP Internal Medicine; Visit Provider Urology
DX: N32.81 Overactive bladder (principal); N40.1 Benign prostatic hyperplasia with lower urinary tract symptoms; R35.1 Nocturia; N13.8 Other obstructive and reflux uropathy; Z13.9 Encounter for screening, unspecified
CPT/HCPCS: 99213

== ENCOUNTER → 2024-10-15 14:26 | Outpatient (BNVA) | payer MEDICARE, SELFPAY | PROVIDERS: PCP Internal Medicine; Visit Provider Urology | DX: N40.1 Benign prostatic hyperplasia with lower urinary tract symptoms (principal); N32.81 Overactive bladder; R35.1 Nocturia; N13.8 Other obstructive and reflux uropathy; Z79.899 Other long term (current) drug therapy | CPT/HCPCS: 51798; 81003; 99212 ==

== ENCOUNTER 2025-04-15 13:09 | Outpatient (AMB) | payer MEDICARE, SELFPAY ==
--- OUTSIDE RECORDS SUMMARY | 2025-04-13 23:59 | XMS_ITS | Continuity of Care Document ---
Author Organization [facility] Address [address] [place] [address]- Care Team Providers Care Economic Development Manager Name Role Phone Anuradha RAMIREZ, Earle Holbrook Primary Care Physician Encounter [facility] Date(s): 03/14/25 - 04/13/25 [facility] [address] [place], [place] [address] Encounter Type: Triage Allergies, [...] (Tdap) (oldterm) 12 02/20/09 Given 1Result Comment: [id number] 2Result Comment: [05/28/2018] hd 3Result Comment: [05/02/2016] [facility] 4Result Comment: [05/05/2015] [facility] 5Admin Note: VINICIUSTYLER 6Admin Note: FLUZONE 7Admin Note: MANUFACTURE BIOMEDICAL INFO SHEET GIVEN GIVEN W/O INCIDENT 8Admin Note: refused 9Result Comment: [02/11/2016] [facility] 10Result Comment: [01/02/2015] DONE AT [facility] FORM RECEIVED 11Admin Note: [facility] 12Admin Note: GIVEN WITHOUT INCIDENT Medications amLODIPine 5 mg oral tablet 1 tablet, By Mouth, Daily, for 90 days, # 90 tablet, 3 Refills, Physician Stop 03/06/26 11:51:00 AM EDT, 03/11/25 11:51:00 AM EDT, [facility] #[id number], 184, cm, 09/25/24 15:19:00 EST, Height, 57.9, kg, 09/24/24 15:17:00 EST, Dry Weight Start Date: 03/11/25 Stop Date: 03/06/26 Status: Ordered Quantity: 90.0 Unit: tablet Repeat number: 4 Eliquis 5 mg oral tablet 1 tablet = 5 mg, By Mouth, 2 times a day, # 60 tablet, 5 Refills, Maintenance, 03/17/25 12:41:00 PM EDT, Tablet, [facility] #[id number], Partial fill upon patient request if the prescription is for a schedule II opioid drug., 184, cm, 03/17/25 11:59:00 EDT, Height, 87.3, kg, 03/17/25 11:59:00 EDT, Dry Weight Start Date: 03/17/25 Status: Ordered Quantity: 60.0 Unit: tablet Repeat number: 6 levothyroxine 0.137 mg oral tablet 1 tablet = 137 mcg, By Mouth, Daily, 1 tablet = 137 mcg, By Mouth, Daily. with plenty of water on an empty stomach, # 90 tablet, 3 Refills, Maintenance, 09/16/24 2:39:00 PM EST, Tablet, [id number], 184, cm, 09/16/24 14:06:00 EST, Height, 88.7, kg, 04/29/24 14:30:00 EDT, Dry Weight Start Date: 09/16/24 Status: Ordered Quantity: 90.0 Unit: tablet Repeat number: 4 Indications: Malignant neoplasm of thyroid gland; [id number] with Electrolytes Lemon-[place] (Eqv-NuLYTELY) oral powder for reconstitution 240 mL, By Mouth, Every 10 minutes, Stay on clear liquid diet ALL DAY the day BEFORE the procedure.Drink half the dose the evening before, and the other half early in the morning on the day of the procedure., # 4,000 mL, 0 Refills, Maintenance, 09/25/24 3:40:00 PM EST, REC Powder, [facility] #[id number], Partial fill upon patient request if the prescription is for a schedule II opioid drug., 240 mL By Mouth Every 10 minutes,Instr:Stay on clear liquid diet ALL DAY the day BEFORE the procedure. Drink half the dose the evening before, and the other half early in the morning on the day of theprocedure., 184, cm, 09/25/24 15:19:00 EST, Height, 57.9, kg, 09/24/24 15:17:00 EST, Dry Weight Start Date: 09/25/24 Status: Ordered Quantity: 4000.0 Unit: mL Repeat number: 1 tadalafil 5 mg oral tablet By Mouth, Daily, TAKE ONE TABLET BY MOUTH EVERY DAY DIRECTED Start Date: 04/29/24 Status: Ordered Repeat number: 1 Problem List Condition Confirmation Course Effective Dates Status Health St atus Informant Atrial fibrillation Confirmed Active Gastritis and duodenitis Confirmed 11/01/20 Active Glaucoma [...] Team Personnel Name: Earle Ling MD Position: [facility] Physician - Primary Care Member Role: PCP Address: [address] [place] [address] Adult & Pediatric Medicine [address] Telecom: Care Team Related Persons Name: SERA LYNN Name: KAMI LYNN Name: NOBLE LYNN Insurance Providers Guarantor name: CRISTOBAL LYNN Health Plan Information #: 1 Payer: [employer] [facility] PPO Payer Identifier: NA Member Number: [id number] Group Number: [id number] Subscriber Identifier: [id number] Relationship to Subscriber: self Coverage Type: Medicare PPO Coverage Verification Date: NA Telecom: BEATRICE Address:
--- NOTE | 2025-04-15 13:14 | MHC.OFFVIS ---
Intake Visit Reasons: 6 month follow up/ PVR/PSA Intake Note: Patient is present for 6M PVR Urology Medication:TADALAFIL Antibiotic Allergy:NONE Blood Thinner:NONE Todays PVR:13 [employer] Disabled Required: No Accompanied by: Self / Same As Patient Allergies Latex Gloves Allergy (Unknown, Uncoded 10/15/24 14:30) Unknown HPI Comments Details: Rony is a pleasant [place] male. He is seen for the following urologic conditions - lower urinary tract symptoms - bladder instability Minimal PVR Has responded to tadalafil - bladder stabilization UA shows 2+ blood known prior chronic cystitis Has been using Metamucil to help with bowels Talked about having lunch at talk [employer] [facility] [employer] Follow-up 12 months Refill tadalafil Lower Urinary Tract Symptoms: Current visit is for further evaluation of, lower urinary tract symptoms, predominate obstructive symptoms Current treatment includes 07/05 , 5-AR. Prior treatments include medication , flomax/tamsulosin - failed, hytrin/terazosin dizziness - had stopped finasteride since had started same time as flomax - oxybutynin with dry mouth, prior darifenacin 07/05 dutasteride. Prostate Symptom Score Moderate (9-19), Bother 3 07/05 , , Moderate (9-19), Bother 2. Symptoms include urgency, nocturia (>2), and are progressing 07/05 , nocturia (>2), and are stable 01/04 , incomplete emptying, weak stream,, and are stable. Results from testing include cystoscopy Normal bladder with occasional red area - 07/03 - chronic cystitis transrectal ultrasound Yes Date 06/20/2016 prostate size 65 Prior Prostate Score mild. PSA 06/05 1.2, 11/07 2.2, 02/04 T 500, FSH 19 - 12/06 PSA 1.6, 12/07 1.8 Prostate volume 50+gm. Testing at next visit will include bladder scan. [facility] Medical History BPH (benign prostatic hyperplasia) HTN (hypertension) Incomplete emptying of bladder Nocturia Orchalgia Overactive bladder Surgical History History of surgery Review of Systems Const Denies chills and Denies fever(s) Card Reports no additional complaints and Denies syncope Resp Denies cough GI Denies abdominal pain and Denies heartburn Reports as per HPI and Denies change in libido Neuro Denies syncope Psych Denies change in libido Endo Denies change in libido Physical Exam Const General: cooperative, healthy appearing, comfortable and no acute distress Orientation/consciousness: patient oriented x3 HEENT Face and sinus: Yes normal facial exam Mouth: moist mucous membranes Neck Neck: Yes normal visual inspection, Yes full ROM and Yes trachea midline Chest Chest palpation & inspection: normal inspection of the chest Resp Effort & Inspection: normal respiratory effort, able to speak in complete sentences and no respiratory distress GI Inspection: Yes normal to inspection Back/Spine/Pelvis Cervical Spine: normal cervical lordosis Thoracic/Lumbar Spine: thoracic and lumbar spine normal to inspection Skin General skin exam: no rashes or lesions noted Neuro General: patient oriented x3, gait normal, tone normal and moves all extremities Extrem General: Yes normal to inspection and Yes capillary refill normal Assessment & Plan Assessment & Plan (1) Nocturia: Code(s): R35.1 - Nocturia Category: Medical (2) BPH w urinary obs/LUTS: Code(s): N40.1 - Benign prostatic hyperplasia with lower urinary tract symptoms; N13.8 - Other obstructive and reflux uropathy Category: Medical Plan Twelve month follow-up check labs Orders: Orders Prostate Specific Antigen 12 Months N13.8 - Other obstructive and reflux uropathy, N40.1 - Benign prostatic hyperplasia with lower urinary tract symptoms Medications: Refilled tadalafil 5 mg PO DAILY 90 tabs 3RF overactive bladder 90 days N32.81 - Overactive bladder Patient Instructions: This note is constructed using voice recognition software. While every effort has been made to ensure accuracy electrotyper errors may have been included. Imaging studies, laboratory and physical exam results were discussed and reviewed in detail. No major barriers to patient understanding were identified. An opportunity to ask questions regarding the treatment plan was provided. All questions were answered. The patient expressed understanding and agreement with the above treatment plan. The patient is aware they should contact our office by phone for worsening of their current condition or the appearance of new urologic symptoms. Compliance is encouraged with any medications and followup testing that is ordered. It is a privilege to participate in the urologic care of your patient. If you have any questions or concerns regarding treatment for the above conditions, or other urologic issues, please do not hesitate to contact me. The office telephone contact is [phone]. Sincerely, Dr Breezy Tolentino MD, [facility] - Urology Compassionate Specialist Care for the Genitourinary System Coding Level of Care Code Est Pt Level 3 (84524) Complex EM visit Add On G2211 Diagnoses Nocturia R35.1 BPH w urinary obs/LUTS N40.1; N13.8
== END 2025-04-15 15:14 | disposition home or self-care (01) ==
LOC: HO.HUSH 13:09
PROVIDERS: PCP Internal Medicine; Visit Provider Urology
DX: N40.1 Benign prostatic hyperplasia with lower urinary tract symptoms (principal); R35.1 Nocturia; N13.8 Other obstructive and reflux uropathy; Z13.9 Encounter for screening, unspecified
CPT/HCPCS: 99213; G2211

== ENCOUNTER → 2025-04-15 13:09 | Outpatient (BNVA) | payer MEDICARE, SELFPAY | PROVIDERS: PCP Internal Medicine; Visit Provider Urology | DX: R35.1 Nocturia (principal); N40.1 Benign prostatic hyperplasia with lower urinary tract symptoms; N13.8 Other obstructive and reflux uropathy; N32.81 Overactive bladder | CPT/HCPCS: 51798; 81003; 99212 ==